=== PATIENT | female | born 1990 | race Caucasian/White ===

== ENCOUNTER 2025-01-19 09:21 | Outpatient (AMB) | payer OTHER, SELFPAY ==
--- NOTE | 2025-01-19 09:22 | MHC.PC.OV ---
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 Accompanied by: Self / Same As Patient Allergies acetaminophen [From PERCOCET] Allergy (Unknown, Verified 01/19/25 09:35) ITCHING oxycodone [From PERCOCET] Allergy (Unknown, Verified 01/19/25 09:35) ITCHING Medication List - Last Reconciled 01/19/25 by Jeny Cooper PA-C albuterol sulfate 90 mcg/actuation inhalation Tobacco use date assessed: 01/19/25 Dental Screening Dental Screen Date: 01/19/25 Did you have a dental visit in the last 12 months?: Yes Did you have a dental problem in the last 6 months where you did not have access to dental care?: No Was dental information given to patient?: Patient has dentist HPI DICK form [facility]/ annual/PPD PLant HPI Details 34-year-old female with no relevant past medical history coming to the office for transfer of care/annual exam. Patient was last seen by Dr. Espinal 09/2022. Presenting with symptoms related to bronchitis and ongoing asthma management. There is a pattern of headaches aligned with menstrual cycles, occurring just before menstruation recently. She describes intermittent left-sided lymph node swelling, typically linked to illness, beginning around 2020 or 2021. No masses or swelling presently. Painful varicose veins are noted, most predominantly around her ankles. 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 [facility] Surgical History (Updated 01/19/25 @ 09:44 by Jeny Cooper PA-C) H/O tubal ligation History of appendectomy History of 2 sections Family History Mother Asthma Father Heart attack Social History Housing: Apartment Alcohol intake: never Patient Tobacco Use Status: Never used Tobacco Tobacco use type: Cigarette e-Cigarette/Vaping Use: Never Used service: No Current occupational status: employed Cognitive needs: No Hearing needs: No Vision needs: Yes Female Reproductive History Menstrual control method: permanent sterilization Permanent Sterilization: BTL Total pregnancies: 4 Full term: 3 Ectopics: 1 Questionnaire PHQ-9 Over the last 2 weeks, how often have you been bothered by any of the following problems? 1. Little interest or pleasure in doing things: not at all 2. Feeling down, depressed, or hopeless: not at all 3. Trouble falling or staying asleep, or sleeping too much: not at all 4. Feeling tired or having little energy: several days 5. Poor appetite or overeating: several days 6. Feeling bad about yourself - or that you are a failure or have let yourself or your family down: not at all 7. Trouble concentrating on things, such as reading the newspaper or watching television: not at all 8. Moving or speaking so slowly that other people could have noticed. Or the opposite - being so fidgety or restless that you have been moving around a lot more than usual: not at all 9. Thoughts that you would be better off or of hurting yourself in some way: not at all Total score: 2 Depression Screening Interpretation: Negative Depression Screening Done: Yes 18718 - PHQ-9 Billing: Yes Source: Developed by Drs. Edmund Bowles, Krupa Ames, Jamshid Zamora and colleagues, with an educational loan from [employer]. Thrive Questionnaire Date Thrive assessed: 01/19/25 I am a: Patient What is your living situation today?: I have a steady place to live Within the past 12 months, did the food you bought not last and you didn't have the money to get more?: Never true Within the past 12 months, did you worry whether your food would run out before you got money to buy more?: Never true Do you have trouble paying for medicines?: No Do you have trouble getting transportation to medical appointments?: No Do you have trouble paying your heating and electricity bill?: No Do you have trouble taking care of your child, family member or friend?: No Do you have trouble with day-to-day activities such as bathing, preparing meals, shopping, managing finances, etc.?: No Are you currently unemployed and looking for a job?: No Are you interested in more education?: No Please select the resources that you would like help with: None Currently or been in a relationship where the following occur: No concerns reported THRIVE Score: 0 AUDIT C Alcohol Use Questionnaire (AUDIT-C) 1. How often do you have a drink containing alcohol?: Never Total Score: 0 AUBREY-7 AMB Questionnaire AUBREY-7 Date AUBREY - 7 assessed: 01/19/25 Feeling nervous, anxious, or on edge: 0 = Not at all Not being able to stop or control worryin = Not at all Worrying too much about different things: 0 = Not at all Trouble relaxin = Not at all Being so restless that it is hard to sit still: 0 = Not at all Becoming easily annoyed or irritable: 0 = Not at all Feeling afraid as if something awful might happen: 0 = Not at all Total AUBREY-7 score (0-4 normal; 5-9 mild; 10-14 moderate; 15-21 severe): 0 Source: Developed by Drs. Edmund Bowles, Krupa Ames, Jamshid Zamora and colleagues, with an educational laon from [employer]. AUBREY-7 Assessment Billing AUBREY-7 Assessment Tool: AUBREY-7 Assessment 83105 Review of Systems Const Denies body aches, Denies chills, Denies fever(s), Denies headache(s) and Denies poor appetite Eyes Reports no additional complaints and Reports requires corrective lenses ENT Denies dysphagia, Denies dizziness, Denies headache(s) and Denies odynophagia Card Denies chest pain, Denies syncope, Denies edema, Denies irregular heart rhythm, Denies lightheadedness and Denies dyspnea Resp Denies cough and Denies dyspnea GI Denies abdominal pain, Denies constipation, Denies dysphagia, Denies diarrhea, Denies nausea, Denies odynophagia and Denies vomiting Reports no additional complaints Musc Reports no additional complaints and Denies abnormal gait Skin/Breast Reports system reviewed and no additional complaints, except as documented Neuro Denies abnormal gait, Denies dizziness, Denies syncope and Denies headache(s) Psych Reports no additional complaints Physical exam (Primary Care) Vital Signs: Last Vital Signs Pulse 94 01/19/25 09:23 BP 100/52 L 01/19/25 09:23 Pulse Ox 98 01/19/25 09:23 Oxygen Delivery Method Room Air 01/19/25 09:23 BMI result Body Mass Index 37.3 Tobacco/Smoking Status: Tobacco use Status Tobacco use date assessed 01/19/25 01/19/25 09:31 Patient Tobacco Use Status Never used Tobacco 01/19/25 09:31 Tobacco use type Cigarette 01/19/25 09:31 e-Cigarette/Vaping Use Never Used 01/19/25 09:31 PHQ-9: PHQ-9 Score PHQ-9: Total score 2 01/19/25 09:45 Depression Screening Interpretation: Negative Thrive Assessment: Date of Thrive Assessment Date Thrive assessed 01/19/25 01/19/25 09:31 Currently or been in a relationship where the following occur: No concerns reported Const General: cooperative, healthy appearing, comfortable and no acute distress Orientation/consciousness: patient oriented x3 HENMT Head: Yes normocephalic Ears: hearing grossly normal bilaterally, external ears normal, TM's normal bilaterally and EAC's normal General nose exam: Normal external nose present Face and sinus: Yes normal facial exam and Yes sinuses nontender Mouth: Normal oral and palatal mucosa present and tongue normal Throat: Yes posterior oropharynx normal Eyes General: appearance normal, both eyes and all related structures Conjunctivae: conjunctivae normal Pupils: Equal, round and reactive pupils present EOM: EOMs intact bilaterally and No Nystagmus present Neck Neck: Yes normal visual inspection, Yes full ROM and Yes no lymphadenopathy Chest Chest palpation & inspection: normal inspection of the chest Resp Effort & Inspection: normal respiratory effort Auscultation: clear to auscultation bilaterally, no crackles, no rales, no rhonchi, no wheezes and breath sounds present Cardio Rate: regular rate Rhythm: regular rhythm Peripheral pulses: radial pulses present and dorsalis pedis present GI Inspection: Yes normal to inspection and No Abdominal wall edema Palpation (GI): Soft to palpation, not firm and nontender Auscultation: normal bowel sounds Rectal Exam - Female: deferred General: Yes no CVA tenderness Back/Spine/Pelvis Back: no CVA tenderness Skin General skin exam: no rashes or lesions noted Neuro General: patient oriented x3 Cranial nerves: Yes Equal, round and reactive pupils present, Yes Midline tongue present, Yes Ability to bilaterally elevate shoulders present and No Nystagmus present Gait exam (Neuro): Normal gait present Extrem Other: No swelling of jessa LE, no calf swelling, pain or warmth. Multiple spider veins or jessa ankles General: Yes normal to inspection, Yes full ROM, No no pedal edema and No edema Psych Speech and movement: Normal speech and movement present Affect: normal affect Insight: Good insight present (Psych) Judgement: Good judgement present (Psych) Coding Level of Care Code Est Pt Prev Care 18-39y(89818) Diagnoses Annual physical exam Z00.00 Asthma J45.909 Obesity (BMI 30-39.9) E66.9 Varicose veins of both lower extremities I83.93 Screening for hypercholesterolemia Z13. Additional Codes AUBREY-7 Assessment Billing - AUBREY-7 Assessment Tool: AUBREY-7 Assessment 33625 ([id number]) PHQ-9 - 68721 - PHQ-9 Billing: Yes ([id number]) Assessment & Plan Assessment & Plan (1) Annual physical exam: Code(s): Z00.00 - Encounter for general adult medical examination without abnormal findings Category: Medical Plan: Patient is up to date on all recommended routine screenings and vaccinations for her age. Healthy diet and regular exercise is encouraged. Ordered for updated blood work and plan to follow up yearly or sooner as needed. (2) Asthma: Code(s): J45.909 - Unspecified asthma, uncomplicated Category: Medical Plan: Asthma currently controlled on present medications. Continue on albuterol prn.? Avoid triggers such as allergies. (3) Obesity (BMI 30-39.9): Code(s): E66.9 - Obesity, unspecified Category: Medical Plan: Healthy diet and regular exercise is encouraged. (4) Varicose veins of both lower extremities: Code(s): I83.93 - Asymptomatic varicose veins of bilateral lower extremities Category: Medical Plan: Patient complaining of varicose veins and spider veins of bilateral lower extremities. Advised patient to use compression stockings, elevation when possible and exercise as tolerated. Requesting referral to vascular at [facility], referral was placed. (5) Screening for hypercholesterolemia: Code(s): Z13.220 - Encounter for screening for lipoid disorders Category: Medical Plan: blood work ordered Plan The ongoing management plan for her respiratory symptoms includes continuing the albuterol inhaler with a refill requested, with consideration of a secondary inhaler if usage remains high. Recommendations include taking Zyrtec for any perceived allergy exacerbations. Headaches are linked to menstruation and will be monitored. Varicose veins will be addressed through a referral, with noted benefits of compression stockings. Health maintenance involves an annual exam, followed by essential blood work. The patient was offered referrals for gynecology and vascular evaluations. This note was constructed using voice recognition software. While every effort has been made to ensure accuracy and jukebox routeman, still areas may have been included sometimes these areas may affect the content or meeting of the given symptoms. Total time spent caring for the patient today was 30 minutes. This includes time spent before the visit reviewing the chart, time spent during the visit, and time spent after the visit and documentation. Patient was informed and verbally consented to the use of an ambient scribe for clinic note documentation during this visit. Orders: Orders TSH reflex Free T4 01/19/25 E66.9 - Obesity, unspecified, Z00.00 - Encounter for general adult medical examination without abnormal findings Vitamin B12 and Folate 01/19/25 E66.9 - Obesity, unspecified, Z13.21 - Encounter for screening for nutritional disorder Vitamin D 25-OH Total 01/19/25 E6.9 - Obesity, unspecified, Z00.00 - Encounter for general adult medical examination without abnormal findings Comprehensive Met. Panel 01/19/25 E66.9 - Obesity, unspecified, Z00.00 - Encounter for general adult medical examination without abnormal findings Complete Blood Count Auto Diff 01/19/25 E66.9 - Obesity, unspecified, Z00.00 - Encounter for general adult medical examination without abnormal findings Lipid Panel 01/19/25 E66.9 - Obesity, unspecified, Z13.220 - Encounter for screening for lipoid disorders T Spot TB 01/19/25 E66.9 - Obesity, unspecified, Z00.00 - Encounter for general adult medical examination without abnormal findings Free T4 (Free Thyroxine) 01/19/25 E66.9 - Obesity, unspecified, Z00.00 - Encounter for general adult medical examination without abnormal findings Referrals [facility] Referral Z12.4 - Encounter for screening for malignant neoplasm of cervix Vascular Surgery Referral I83.93 - Asymptomatic varicose veins of bilateral lower extremities Medications: Changed From albuterol sulfate 90 mcg/actuation inhalation To albuterol sulfate 90 mcg/actuation 1 puff inhalation Q4-6H PRN 8.5 grams 0RF bronchospasm
[2025-01-19 09:23] VITALS: BP 100/52; PULSE 94; O2SAT 98; BMI 37.3
== END 2025-01-19 09:59 | disposition home or self-care (01) ==
LOC: HO.HMCH 09:22
DX: Z00.00 Encounter for general adult medical examination without abnormal findings (principal); J45.909 Unspecified asthma, uncomplicated; E66.9 Obesity, unspecified; Z68.37 Body mass index [BMI] 37.0-37.9, adult; I83.93 Asymptomatic varicose veins of bilateral lower extremities; Z13.220 Encounter for screening for lipoid disorders

== ENCOUNTER → 2025-01-19 09:21 | Outpatient (BNVA) | payer OTHER, SELFPAY | DX: Z00.00 Encounter for general adult medical examination without abnormal findings (principal); J45.909 Unspecified asthma, uncomplicated; R51.9 Headache, unspecified; I83.813 Varicose veins of bilateral lower extremities with pain; E66.9 Obesity, unspecified; Z68.37 Body mass index [BMI] 37.0-37.9, adult | CPT/HCPCS: 96127; 99395 ==

== ENCOUNTER 2025-01-21 09:04 | Outpatient (REF) | payer OTHER, SELFPAY ==
--- OUTSIDE RECORDS SUMMARY | 2025-01-21 09:29 | XMS_ITS | Encounter Summary ---
Author Organization [facility] Address [address] [place] [id number] Phone Care Team Providers Care Painter Bottom Name Role Phone Marlen Augustine MD Primary Care Provider Unavailabl e Encounter Details Date Type Department Care Team (Late st Contact Info) Description 04/03/2017 Conversion Encounter [facility] - [address] [address] Social History Tobacco Use Types Packs/Day Years Used Date Smoking Tobacco: Never Assessed Comments Unknown Sex and Gender Information Value Date Recorded Sex Assigned at Not on file Legal Sex Female 4:21 PM EDT Gender Identity Not on file Sexual Orientation Not on file documented as of this encounter Plan of Treatment Not on file documented as of this encounter Visit Diagnoses Not on filedocumented in this encounter Care Teams Painter Bottom Relationship Specialty Start Date End Date Marlen Augustine MD PCP - General 03/28/17 documented as of this encounter
[2025-01-21 10:20] LABS: MANUAL DIFF FLAG NO
[2025-01-21 10:33] LABS: Basophils Percent Auto 0.6 % (0-2); Eosinophils Absolute Auto 0.1 X10*3/uL (0.0-0.4); Eosinophils Percent Auto 1.6 % (0-4); Hematocrit 39.1 % (37.0-47.0); Hemoglobin 12.5 g/dl (12.0-16.0); Imm Gran Abs Auto 0.02 X10*3/uL (0.00-0.03); Imm Gran Pct Auto 0.4 % (0.0-0.4); Lymphocytes Absolute Auto 1.3 X10*3/uL (1.2-4.9); Lymphocytes Percent Auto 27.2 % (20-40); Mean Corpuscular Hemoglobin 26.1 pg (27.0-33.0); Mean Corpuscular Volume 81.6 fL (80.0-98.0); Mean Platelet Volume 10.1 fL (9.4-12.3); Monocytes Absolute Auto 0.4 X10*3/uL (0.1-1.2); Monocytes Percent Auto 8.7 % (2-11); Neutrophils Percent Auto 61.5 % (45-73); Platelet Count 293 X10*3/uL (160-400); Red Blood Count 4.79 X10*6/uL (4.20-5.50); Red Cell Distribution Width 13.4 % (11.0-16.0); White Blood Count 4.9 X10*3/uL (4.8-10.8)
[2025-01-21 11:28] LABS: Folate 9.6 ng/mL (> or = 4.0); Vitamin B12 503 pg/mL (200-900)
[2025-01-21 13:07] LABS: Free T4 (Free Thyroxine) 0.96 ng/dL (0.71-1.85); TSH reflex Free T4 1.23 uIU/mL (0.32-4.0); Vitamin D 25-OH Total 22.1 ng/mL (>30)
[2025-01-21 13:08] LABS: Anion Gap 10 (12-20)
[2025-01-21 13:13] LABS: Alanine Aminotransferase 23 U/L (0-31); Albumin Level 4.3 g/dL (3.5-5.0); Alkaline Phosphatase 46 U/L (39-117); Aspartate Amino Transferase 21 U/L (5-31); Bilirubin Total 0.6 mg/dL (0.0-1.0); Blood Urea Nitrogen 9 mg/dL (9-16); Calcium 9.2 mg/dL (8.4-10.2); Carbon Dioxide 26 mmol/L (22-29); Chloride 111 mmol/L (96-108); Cholesterol 156 mg/dL (<200); Estimated Glomerular Filt Rate > 60; Glucose Random 85 mg/dL (60-115); HDL Cholesterol 70 mg/dL (>40); LDL Cholesterol Calculated 72 mg/dL (<100); Potassium 3.9 mmol/L (3.3-5.1); Sodium 143 mmol/L (135-145); Total Protein 6.7 g/dL (6.5-8.0); Triglycerides 71 mg/dL (<150)
[2025-01-24 16:38] LABS: TS Negative Control Passed; TS Panel A 0; TS Panel B 0; TS Positive Control Passed; TSpotTB Negative (Negative)
== END 2025-01-21 09:05 | disposition home or self-care (01) ==
LOC: HO.HMGCLDS 09:04
DX: Z00.00 Encounter for general adult medical examination without abnormal findings (principal); E66.9 Obesity, unspecified; Z13.21 Encounter for screening for nutritional disorder; Z13.220 Encounter for screening for lipoid disorders
CPT/HCPCS: 36415; 80053; 80061; 82306; 82607; 82746; 84439; 84443; 85025; 86481